=== PATIENT | female | born 1935 | race African-American/Black ===

== ENCOUNTER 2017-03-21 17:34 | Emergency (ER) | payer OTHER ==
--- NOTE | 2017-03-21 17:56 | PDOC ---
Rapid Medical Evaluation Time Seen by Provider: 03/21/17 17:53 Medical Evaluation: Allergies Allergy/AdvReac Type Severity Reaction Status Date / Time No Known Allergies Allergy Verified 12/13/14 23:40 03/21/17 17:53 Pt c/o:generalized weakness and lightheadness, vss and bs wnl at home, + diarrhea since yesterday x 2 . no blood, no fever, burning with urination Pt on brief exam: vss Pt ordered for: ua, ucx P to proceed to the ED: Discharge Disposition - Diagnosis Weakness - Referrals - Patient Instructions - Post Discharge Activity
[2017-03-21 17:59] VITALS: BP 153/79; PULSE 69; TEMP 98.8; BMI 32.5
[2017-03-21 19:13] LABS: URINE APPEARANCE CLEAR; URINE BILIRUBIN NEGATIVE (NEGATIVE); URINE BLOOD NEGATIVE (NEGATIVE); URINE COLOR LTYELLOW; URINE GLUCOSE (UA) NEGATIVE (NEGATIVE); URINE KETONE NEGATIVE (NEGATIVE); URINE LEUK ESTERASE NEGATIVE (NEGATIVE); URINE NITRITE NEGATIVE (NEGATIVE); URINE PROTEIN NEGATIVE (NEGATIVE); URINE UROBILINOGEN NEGATIVE mg/dL (0.2-1.0)
--- NOTE | 2017-03-21 20:31 | PDOC ---
History of Present Illness - General Chief Complaint: Weakness Stated Complaint: WEAKNESS Time Seen by Provider: 03/21/17 17:53 - History of Present Illness Initial Comments: 81 year old female with history of HTN, IDDM, and and HLD presenting with Dysuria, diarrhea, lightheadedness, and generalized weakness for the past three days. Her airport sales agent at bedside assists with the history and states that she had a UTi one month prior and was given abx by her PCP (Dr. Crandall) and experienced slight relief. She has been on Azo since but still has dysuria. She just finished another course of antibiotics yesterday and noticed NB diarrhea ( approximately 2x per day) over the last three days. Her appetite has been good and she denies fevers, chills, SOB, chest pain, blood from any orifice, or other sick symptoms. 03/21/17 20:25 Past History - Past Medical History Allergies/Adverse Reactions: Allergies Allergy/AdvReac Type Severity Reaction Status Date / Time No Known Allergies Allergy Verified 03/21/17 17:59 Home Medications: Ambulatory Orders Cephalexin [Keflex] 500 mg PO BID 10 Days #20 capsule 03/21/17 COPD: No Dementia: Yes Diabetes: Yes (niddm) HTN: Yes - Immunization History Immunization Up to Date: Yes - Suicide/Smoking/Psychosocial Hx Smoking History: Never smoked Have you smoked in the past 12 months: No Hx Alcohol Use: No Drug/Substance Use Hx: No Substance Use Type: None Review of Systems - Review of Systems Constitutional: No: Chills, Fever, Loss of Appetite HEENTM: No: Blurred Vision Respiratory: No: Cough, Shortness of Breath, Wheezing Cardiac (ROS): Yes: Lightheadedness. No: Chest Pain, Palpitations, Syncope, Chest Tightness ABD/GI: Yes: Diarrhea. No: Constipated, Nausea, Vomiting : Yes: Burning, Dysuria, Frequency. No: Discharge, Hematuria, Incontinence Musculoskeletal: No: Back Pain, Joint Pain Integumentary: No: Bruising, Flushing, Lesions, Lumps Neurological: Yes: Weakness. No: Headache *Physical Exam - Vital Signs Last Vital Signs Temp Pulse Resp BP Pulse Ox 98.8 F 69 16 153/79 100 03/21/17 17:56 03/21/17 17:56 03/21/17 17:56 03/21/17 17:56 03/21/17 17:56 - Physical Exam General Appearance: Yes: Nourished, Appropriately Dressed. No: Apparent Distress HEENT: positive: EOMI, LEMUEL, Normal Voice. negative: Normal ENT Inspection ( Hard of hearing bilaterally) Neck: positive: Trachea midline, Normal Thyroid, Supple. negative: Tender, Rigid Respiratory/Chest: positive: Lungs Clear, Normal Breath Sounds. negative: Chest Tender, Respiratory Distress, Accessory Muscle Use Cardiovascular: positive: Regular Rhythm, Regular Rate Gastrointestinal/Abdominal: positive: Normal Bowel Sounds, Flat, Soft. negative : Tender Musculoskeletal: positive: Normal Inspection. negative: CVA Tenderness Extremity: positive: Normal Capillary Refill, Normal Inspection. negative: Tender Integumentary: positive: Normal Color, Dry, Warm Neurologic: positive: Fully Oriented, Alert, Normal Mood/Affect, Normal Response ED Treatment Course - ADDITIONAL ORDERS Additional order review: Laboratory Results 03/21/17 18:10 Urine Color Ltyellow Urine Appearance Clear Urine pH 5.0 Ur Specific [place] 1.011 Urine Protein Negative Urine Glucose (UA) Negative Urine Ketones Negative Urine Blood Negative Urine Nitrite Negative Urine Bilirubin Negative Urine Urobilinogen Negative Ur Leukocyte Esterase Negative Medical Decision Making - Medical Decision Making 81 year old female with diabetes and HTN presenting with dysuria and a few episodes of diarrhea over the last few days. Denies fevers, chills, nausea, or vomiting. The patient is well appearing here and has been on pyridium. UA negative but she has been on abx. Will discharge with Motrin and Keflex. Will have follow up with Dr. Crandall tomorrow to coordinate abx choice. 03/21/17 20:51 *DC/Admit/Observation/Transfer Diagnosis at time of Disposition: Weakness UTI (urinary tract infection) Qualifiers: Urinary tract infection type: acute cystitis Hematuria presence: without hematuria Qualified Code(s): N30.00 - Acute cystitis without hematuria - Discharge Dispostion Disposition: HOME Condition at time of disposition: Stable Admit: No - Prescriptions Prescriptions: Cephalexin [Keflex] 500 mg PO BID 10 Days #20 capsule - Referrals Referrals: Denys Crandall MD [Staff Physician] - - Patient Instructions Printed Discharge Instructions: DI for Urinary Tract Infection (UTI) Additional Instructions: You might have an infection in your urine. Please take your antibiotics as prescribed and use Motrin 400 MG twice a day as needed. Please follow up with Dr. Crandall tomorrow to see if the antibiotics are appropriate in respect to what she has given you before. Your flu swab was negative and your urine culture is pending. We will call you if it grows anything. Please return if your symptoms do not improve in the next few days or if you get acutely worse with new fevers , chills, nausea vomiting, or worsening diarrhea. - Post Discharge Activity
--- NOTE | 2017-03-21 20:44 | PDOC ---
Attending Attestation - Resident Resident Name: Mckinley Pritchett - ED Attending Attestation I have performed the following: I have examined & evaluated the patient, The case was reviewed & discussed with the resident, I agree w/resident's findings & plan, Exceptions are as noted - Physicial Exam PE: 03/21/17 20:52 *Physical Exam General Appearance: Yes: Appropriately Dressed. No: Apparent Distress, Intoxicated HEENT: positive: EOMI, LEMUEL, Normal ENT Inspection, Normal Voice, TMs Normal, Pharynx Normal. negative: Pale Conjunctivae, Photophobia, Scleral Icterus (R), Scleral Icterus (L) Neck: positive: Trachea midline, Normal Thyroid, Supple. negative: Tender, Rigid, Carotid bruit, Stridor, Lymphadenopathy (R), Lymphadenopathy (L), Thyromegaly Respiratory/Chest: positive: Lungs Clear, Normal Breath Sounds. negative: Chest Tender, Respiratory Distress, Accessory Muscle Use, Labored Respiration, RES, Crackles, Rales, Rhonchi, Stridor, Wheezing, Dullness Cardiovascular: positive: Regular Rhythm, Regular Rate, S1, S2. negative: Edema , JVD, Murmur, Bradycardia, Tachycardia Vascular Pulses: Dorsalis-Pedis (R): 2+, Doralis-Pedis (L): 2+ Gastrointestinal/Abdominal: positive: Normal Bowel Sounds, Flat, Soft. negative : Tender, Organomegaly, Pulsatile Mass, Increased Bowel Sounds, Decreased BS, Distended, Guarding, Rebound, Hernia, Hepatomegaly, Spleenomegaly Lymphatic: negative: Adenopathy, Tenderness Musculoskeletal: positive: Normal Inspection. negative: CVA Tenderness, Decreased Range of Motion Extremity: positive: Normal Capillary Refill, Normal Inspection, Normal Range of Motion, Pelvis Stable. negative: Tender, Pedal Edema, Swelling, Erythema Integumentary: positive: Normal Color, Dry, Warm. negative: Cyanotic, Erythema , Jaundice, Rash Neurologic: positive: gamma operator II-XII NML intact, Fully Oriented, Alert, Normal Mood/ Affect, Motor Strength 5/5. negative: EOM Palsy, Facial Droop, Sensory Deficit - Medical Decision Making 03/21/17 20:50 Pt treated and released. <Daniel Delacruz - Last Filed: 03/21/17 20:52> - HPI HPI: 03/21/17 21:18 The patient is a 81 year old female with a significant past medical history of HTN, IDDM, and and HLD presenting to the emergency depatment with new onset diarrhea, lightheadedness for 3 days with persistent dysuria and generalized weakness despite a course of Abx for UTI the patient had about a month ago. The patient presents with her assistant health educator at bedside who states the patient experienced slight temporary relief after the course of Abx. The patient states she has been on "Azo" since but still complains of dysuria. The patient reports just completing another course of antibiotics yesterday, prescribed by Dr. Denys Crandall. As per the assistant health educator, she noticed non-bloody, diarrhea (approximately 2x per day) over the last three days. The patient denies chest pain, shortness of breath, headache and dizziness. The patient denies fever, chills, nausea, vomit, and constipation. The patient denies frequency, urgency and hematuria. - Medical Decision Making 03/21/17 21:24 Documentation prepared by Alice Barahona, acting as medical fee clerk for Daniel Delacruz DO. <Alice Barahona - Last Filed: 03/21/17 21:24>
== END 2017-03-21 21:22 | disposition home or self-care (01) ==
LOC: JER 17:34
DX: N30.00 Acute cystitis without hematuria (principal); E11.9 Type 2 diabetes mellitus without complications; I10 Essential (primary) hypertension
CPT/HCPCS: 81003; 87086; 87804; 99281-25

== ENCOUNTER 2020-06-15 12:16 | Inpatient (IN) | payer OTHER ==
[2020-06-15 14:45] LABS: BASO % 0.4 % (0-2.0); HEMATOCRIT 33.4 % (32.4-45.2); HEMOGLOBIN 10.8 GM/dL (10.7-15.3); LYMPH % 15.4 % (8-40); MCH 29.6 pg (25.7-33.7); MCHC 32.3 g/dl (32.0-36.0); MEAN CELL VOLUME 91.5 fl (80-96); MEAN PLT VOLUME 8.6 fl (7.5-11.1); MONO % 3.4 % (3.8-10.2); NEUT % 80.8 % (42.8-82.8); PLATELET COUNT 676 K/MM3 (134-434); RBC 3.65 M/mm3 (3.60-5.2)
[2020-06-15 15:06] LABS: CHLORIDE 108 mmol/L (98-107); SODIUM 147 mmol/L (136-145)
[2020-06-15 15:09] LABS: CALCIUM 9.5 mg/dL (8.5-10.1); GLUCOSE,RANDOM 300 mg/dL (74-106)
[2020-06-15 15:10] LABS: ALBUMIN 2.8 g/dl (3.4-5.0); ANION GAP 23 MMOL/L (8-16); BLOOD UREA NITROGEN 30.6 mg/dL (7-18); CO2 15 mmol/L (21-32)
[2020-06-15 15:13] LABS: CREATININE 1.1 mg/dL (0.55-1.3); SGOT/AST 13 U/L (15-37); SGPT/ALT 14 U/L (13-61)
[2020-06-15 15:14] LABS: BILIRUBIN,TOTAL 0.6 mg/dL (0.2-1); TOT PROT 7.2 g/dl (6.4-8.2)
[2020-06-15 15:16] LABS: ALK PHOS 179 U/L (45-117)
[2020-06-15] MEDS ORDERED: LACTATED RINGERS SOLUTION 1,000 ML/1,000 ML INFUS.BAG IV STA (15:19)
[2020-06-15 15:42] LABS: EPI CELLS >36 /uL (0-25.1); HYALINE CASTS 7 /uL (0-3.1); URINE APPEARANCE CLOUDY; URINE BACTERIA >9,000 /uL (0-1359); URINE BILIRUBIN NEGATIVE (NEGATIVE); URINE COLOR YELLOW; URINE GLUCOSE (UA) TRACE (NEGATIVE); URINE KETONE 4+ (NEGATIVE); URINE LEUK ESTERASE 3+ (NEGATIVE); URINE NITRITE NEGATIVE (NEGATIVE); URINE PROTEIN 1+ (NEGATIVE); URINE WBC 1064 /uL (0-25.8)
[2020-06-15 16:14] LABS: ERYTHROCYTE SEDIMENTATION RATE 66 mm/hr (0-30)
[2020-06-15] MEDS ORDERED: VANCOMYCIN 1 GM in D5W (PRE-DOCKED) 1,000 MG/250 ML IVPB ONE (16:22)
[2020-06-15] MEDS ORDERED: PIPERACILLIN/TAZOB 4.5 GM 4.5 GM in DEXTROSE 5%-WATER 100 ML IVPB ONE (16:23)
[2020-06-15] MEDS ORDERED: LACTATED RINGERS SOLUTION 1000 ML INFUS.BAG IV ONE (16:35)
[2020-06-15] MEDS ORDERED: MAGNESIUM SULF 50% (8.12 MEQ/2 ML-1 GM VIAL) IVPB ONE (16:39)
[2020-06-15 16:53] LABS: MAGNESIUM 2.2 mg/dL (1.8-2.4)
[2020-06-15] MEDS ORDERED: VANCOMYCIN 1 GRAM (PRE-DOCKED) 1,000 MG/250 ML BAG IVPB ONE (17:25)
[2020-06-15] MEDS ORDERED: HEPARIN NA (PORCINE) 5,000 UNITS/ML 1ML VIAL ONE (17:25)
[2020-06-15] MEDS ORDERED: MAGNESIUM SULF 50% (8.12 MEQ/2 ML-1 GM VIAL) ONE (17:26)
[2020-06-15] MEDS: SODIUM CHLORIDE 0.45%/POT 20 MEQ/1,000 ML INFUS.BAG IV SCH ×2 (18:17→20:12)
[2020-06-15] MEDS: HEPARIN NA (PORCINE) 5,000 UNITS/ML 1ML VIAL SQ SCH ×2 (18:22→21:04)
[2020-06-15 18:45] LABS: URINE RBC 28 /uL (0-23.9)
[2020-06-15] MEDS ORDERED: PIPERACILLIN/TAZOBACTAM 3.375 GM VIAL IVPB ONE (21:02)
[2020-06-15] MEDS ORDERED: DEXTROSE 5%-WATER - 50 ML IVPB ONE (21:02)
[2020-06-15] MEDS: PIPERACILLIN/TAZOB 3.375 GM 3.375 GM in DEXTROSE 5%-WATER - 50 ML IVPB SCH (21:04)
[2020-06-15] MEDS: INSULIN SLIDING SCALE (NOVOLOG) 1 VIAL SQ SCH ×2 (21:04→21:30)
[2020-06-15] MEDS: ATORVASTATIN CA 20 MG TABLET (FP) PO SCH (21:04)
[2020-06-16] MEDS ORDERED: PIPERACILLIN/TAZOBACTAM 3.375 GM VIAL IVPB ONE ×3 (03:02→21:09)
[2020-06-16] MEDS ORDERED: DEXTROSE 5%-WATER - 50 ML IVPB ONE ×3 (03:02→21:09)
[2020-06-16] MEDS: PIPERACILLIN/TAZOB 3.375 GM 3.375 GM in DEXTROSE 5%-WATER - 50 ML IVPB SCH ×3 (03:06→21:11)
[2020-06-16] MEDS: HEPARIN NA (PORCINE) 5,000 UNITS/ML 1ML VIAL SQ SCH ×3 (05:40→21:11)
[2020-06-16] MEDS: INSULIN SLIDING SCALE (NOVOLOG) 1 VIAL SQ SCH ×4 (06:01→21:55)
[2020-06-16] MEDS: ASPIRIN 81 MG CHEWABLE TABLETS PO SCH (09:02)
[2020-06-16] MEDS: amLODIPine BESYLATE 10 MG TABLET (FP) PO SCH (09:02)
[2020-06-16] MEDS: LISINOPRIL 10 MG TABLET PO SCH (09:02)
[2020-06-16] MEDS: DONEPEZIL HCL 5 MG TABLET (FP) PO SCH (09:02)
[2020-06-16] MEDS ORDERED: levETIRAcetam 500 MG/5 ML INJECTION VIAL IVPB ONE (09:21)
[2020-06-16 09:53] LABS: ALLENS TEST POSITIVE; ARTERIAL BLD GAS O2 SATURATION 99.1 mmHg (95-98); ARTERIAL BLOOD GAS BASE EXCESS 0.3 mmol/L (-2-2); ARTERIAL BLOOD GAS PO2 163.6 mmHg (80-100); ARTERIAL BLOOD GAS pH 7.428 (7.350-7.450)
[2020-06-16] MEDS: SODIUM CHLORIDE 0.45%/POT 20 MEQ/1,000 ML INFUS.BAG IV SCH ×2 (10:47→19:00)
[2020-06-16 11:03] LABS: BASO % 0.5 % (0-2.0); HEMATOCRIT 29.4 % (32.4-45.2); HEMOGLOBIN 9.8 GM/dL (10.7-15.3); LYMPH % 16.5 % (8-40); MCH 29.9 pg (25.7-33.7); MCHC 33.4 g/dl (32.0-36.0); MEAN CELL VOLUME 89.3 fl (80-96); MONO % 5.5 % (3.8-10.2); NEUT % 77.5 % (42.8-82.8); RDW 15.7 % (11.6-15.6); WHITE BLOOD COUNT 11.5 K/mm3 (4.0-10.0)
[2020-06-16 11:04] LABS: MEAN PLT VOLUME 8.5 fl (7.5-11.1); PLATELET COUNT 460 K/MM3 (134-434)
[2020-06-16 11:32] LABS: ALBUMIN 2.4 g/dl (3.4-5.0); CALCIUM 8.8 mg/dL (8.5-10.1); MAGNESIUM 2.1 mg/dL (1.8-2.4)
[2020-06-16 11:36] LABS: CREATININE 1.2 mg/dL (0.55-1.3); PHOSPHOROUS 2.1 mg/dL (2.5-4.9)
[2020-06-16 11:37] LABS: BILIRUBIN,TOTAL 0.4 mg/dL (0.2-1)
[2020-06-16] MEDS ORDERED: VANCOMYCIN 1 GRAM (PRE-DOCKED) 1,000 MG/250 ML BAG IVPB ONE ×3 (12:02→16:00)
[2020-06-16 13:29] LABS: PLATELET ESTIMATE NORMAL
[2020-06-16] MEDS ORDERED: PT OWN MED DRAWER 7, Y5N ONE (14:20)
[2020-06-16 14:28] LABS: LACTIC ACID 3.1 mmol/L (0.4-2.0)
[2020-06-16] MEDS: SODIUM PHOSPHATE - 20 MM in DEXTROSE 5%-WATER - 500 ML IVPB ONE ×2 (16:25→16:40)
[2020-06-16] MEDS: KCL 10 MEQ IVPB 10 MEQ/100 ML INFUS.BAG IVPB SCH ×3 (16:40→23:50)
[2020-06-16] MEDS ORDERED: PIPERACILLIN/TAZOB 3.375 GM 3.375 GM in DEXTROSE 5%-WATER - 50 ML IVPB SCH (18:00)
[2020-06-16] MEDS: ATORVASTATIN CA 20 MG TABLET (FP) PO SCH (21:17)
[2020-06-16] MEDS: levETIRAcetam 500 MG/5 ML INJECTION VIAL IVPB SCH (21:55)
[2020-06-17] MEDS ORDERED: DEXTROSE 5%-WATER - 50 ML IVPB ONE ×3 (02:53→18:05)
[2020-06-17] MEDS ORDERED: PIPERACILLIN/TAZOBACTAM 3.375 GM VIAL IVPB ONE ×3 (02:53→18:04)
[2020-06-17] MEDS: PIPERACILLIN/TAZOB 3.375 GM 3.375 GM in DEXTROSE 5%-WATER - 50 ML IVPB SCH ×3 (02:57→18:10)
[2020-06-17] MEDS: SODIUM CHLORIDE 0.45%/POT 20 MEQ/1,000 ML INFUS.BAG IV SCH ×2 (03:24→21:47)
[2020-06-17] MEDS: HEPARIN NA (PORCINE) 5,000 UNITS/ML 1ML VIAL SQ SCH ×3 (06:27→21:47)
[2020-06-17] MEDS: INSULIN SLIDING SCALE (NOVOLOG) 1 VIAL SQ SCH ×4 (06:27→21:58)
[2020-06-17] MEDS: ASPIRIN 81 MG CHEWABLE TABLETS PO SCH (09:35)
[2020-06-17] MEDS: DONEPEZIL HCL 5 MG TABLET (FP) PO SCH (09:35)
[2020-06-17] MEDS: amLODIPine BESYLATE 10 MG TABLET (FP) PO SCH (09:36)
[2020-06-17] MEDS: LISINOPRIL 10 MG TABLET PO SCH (09:36)
[2020-06-17 10:31] LABS: BASO % 0.5 % (0-2.0); EOS % 0.1 % (0-4.5); HEMATOCRIT 31.6 % (32.4-45.2); HEMOGLOBIN 10.5 GM/dL (10.7-15.3); LYMPH % 24.3 % (8-40); MCH 29.6 pg (25.7-33.7); MCHC 33.3 g/dl (32.0-36.0); MEAN PLT VOLUME 7.9 fl (7.5-11.1); MONO % 4.6 % (3.8-10.2); NEUT % 70.5 % (42.8-82.8); RBC 3.55 M/mm3 (3.60-5.2); RDW 15.7 % (11.6-15.6); WHITE BLOOD COUNT 9.1 K/mm3 (4.0-10.0)
[2020-06-17 10:32] LABS: PLATELET COUNT 506 K/MM3 (134-434)
[2020-06-17 11:00] LABS: CALCIUM 8.3 mg/dL (8.5-10.1)
[2020-06-17 11:01] LABS: ALBUMIN 2.4 g/dl (3.4-5.0); BLOOD UREA NITROGEN 17.5 mg/dL (7-18); MAGNESIUM 1.9 mg/dL (1.8-2.4)
[2020-06-17 11:04] LABS: CREATININE 0.9 mg/dL (0.55-1.3); PHOSPHOROUS 3.2 mg/dL (2.5-4.9)
[2020-06-17 11:05] LABS: BILIRUBIN,TOTAL 0.4 mg/dL (0.2-1); TOT PROT 6.2 g/dl (6.4-8.2)
[2020-06-17] MEDS: levETIRAcetam 500 MG/5 ML INJECTION VIAL IVPB SCH ×2 (12:46→21:47)
[2020-06-17] MEDS: COLLAGENASE CLOSTRIDIUM HIST. 30 GRAMS TUBE TP SCH (17:55)
[2020-06-17] MEDS: ATORVASTATIN CA 20 MG TABLET (FP) PO SCH (21:43)
[2020-06-18] MEDS ORDERED: PIPERACILLIN/TAZOBACTAM 3.375 GM VIAL IVPB ONE ×2 (02:27→08:57)
[2020-06-18] MEDS ORDERED: DEXTROSE 5%-WATER - 50 ML IVPB ONE ×2 (02:28→08:58)
[2020-06-18] MEDS: PIPERACILLIN/TAZOB 3.375 GM 3.375 GM in DEXTROSE 5%-WATER - 50 ML IVPB SCH ×3 (02:50→18:50)
[2020-06-18] MEDS: INSULIN SLIDING SCALE (NOVOLOG) 1 VIAL SQ SCH ×4 (06:12→22:15)
[2020-06-18] MEDS: HEPARIN NA (PORCINE) 5,000 UNITS/ML 1ML VIAL SQ SCH ×3 (06:13→22:08)
[2020-06-18 06:43] LABS: BASO % 0.5 % (0-2.0); EOS % 0.2 % (0-4.5); HEMATOCRIT 28.5 % (32.4-45.2); HEMOGLOBIN 9.7 GM/dL (10.7-15.3); LYMPH % 25.2 % (8-40); MCH 30.2 pg (25.7-33.7); MEAN CELL VOLUME 88.7 fl (80-96); MEAN PLT VOLUME 8.3 fl (7.5-11.1); MONO % 4.7 % (3.8-10.2); NEUT % 69.4 % (42.8-82.8); PLATELET COUNT 498 K/MM3 (134-434); RBC 3.21 M/mm3 (3.60-5.2); WHITE BLOOD COUNT 6.9 K/mm3 (4.0-10.0)
[2020-06-18 06:53] LABS: CALCIUM 7.9 mg/dL (8.5-10.1)
[2020-06-18 06:56] LABS: CREATININE 0.7 mg/dL (0.55-1.3)
[2020-06-18 06:58] LABS: BILIRUBIN,TOTAL 0.4 mg/dL (0.2-1); TOT PROT 5.4 g/dl (6.4-8.2)
[2020-06-18] MEDS: amLODIPine BESYLATE 10 MG TABLET (FP) PO SCH (09:27)
[2020-06-18] MEDS: DONEPEZIL HCL 5 MG TABLET (FP) PO SCH (09:27)
[2020-06-18] MEDS: ASPIRIN 81 MG CHEWABLE TABLETS PO SCH (09:27)
[2020-06-18] MEDS: COLLAGENASE CLOSTRIDIUM HIST. 30 GRAMS TUBE TP SCH (09:27)
[2020-06-18] MEDS: levETIRAcetam 500 MG/5 ML INJECTION VIAL IVPB SCH ×2 (09:27→22:10)
[2020-06-18] MEDS: LISINOPRIL 10 MG TABLET PO SCH (09:27)
[2020-06-18] MEDS ORDERED: VANCOMYCIN 1 GRAM (PRE-DOCKED) 1,000 MG/250 ML BAG IVPB ONE (09:30)
[2020-06-18] MEDS ORDERED: METOPROLOL TARTRATE 5 MG/5 ML VIAL IVPB PRN (13:20)
[2020-06-18] MEDS: SODIUM CHLORIDE 0.45%/POT 20 MEQ/1,000 ML INFUS.BAG IV SCH (17:40)
[2020-06-18] MEDS: ATORVASTATIN CA 20 MG TABLET (FP) PO SCH (22:10)
[2020-06-19] MEDS: PIPERACILLIN/TAZOB 3.375 GM 3.375 GM in DEXTROSE 5%-WATER - 50 ML IVPB SCH ×5 (02:20→18:15)
[2020-06-19] MEDS: HEPARIN NA (PORCINE) 5,000 UNITS/ML 1ML VIAL SQ SCH ×3 (05:43→22:12)
[2020-06-19] MEDS: INSULIN SLIDING SCALE (NOVOLOG) 1 VIAL SQ SCH ×4 (06:16→22:13)
[2020-06-19 08:47] VITALS: BMI 24.3
[2020-06-19] MEDS: LISINOPRIL 10 MG TABLET PO SCH (09:40)
[2020-06-19] MEDS: ASPIRIN 81 MG CHEWABLE TABLETS PO SCH (09:40)
[2020-06-19] MEDS: DONEPEZIL HCL 5 MG TABLET (FP) PO SCH (09:40)
[2020-06-19] MEDS: amLODIPine BESYLATE 10 MG TABLET (FP) PO SCH (09:40)
[2020-06-19] MEDS: levETIRAcetam 500 MG/5 ML INJECTION VIAL IVPB SCH ×3 (09:40→22:20)
[2020-06-19] MEDS ORDERED: PIPERACILLIN/TAZOBACTAM 3.375 GM VIAL IVPB ONE ×2 (12:08→17:11)
[2020-06-19] MEDS ORDERED: DEXTROSE 5%-WATER - 50 ML IVPB ONE ×2 (12:08→17:11)
[2020-06-19] MEDS: COLLAGENASE CLOSTRIDIUM HIST. 30 GRAMS TUBE TP SCH (12:13)
[2020-06-19] MEDS: D5-NS + 20 MEQ KCL - 20 MEQ/1,000 ML INFUS.BAG IV SCH (13:38)
[2020-06-19] MEDS: SODIUM CHLORIDE 0.45%/POT 20 MEQ/1,000 ML INFUS.BAG IV SCH (18:02)
[2020-06-19] MEDS: ATORVASTATIN CA 20 MG TABLET (FP) PO SCH (22:25)
[2020-06-20] MEDS: HEPARIN NA (PORCINE) 5,000 UNITS/ML 1ML VIAL SQ SCH ×3 (05:25→21:25)
[2020-06-20] MEDS: INSULIN SLIDING SCALE (NOVOLOG) 1 VIAL SQ SCH ×4 (06:55→22:38)
[2020-06-20 07:17] LABS: BASO % 0.5 % (0-2.0); HEMATOCRIT 28.6 % (32.4-45.2); HEMOGLOBIN 9.7 GM/dL (10.7-15.3); LYMPH % 25.5 % (8-40); MCH 30.1 pg (25.7-33.7); MCHC 33.8 g/dl (32.0-36.0); MEAN PLT VOLUME 8.9 fl (7.5-11.1); MONO % 6.7 % (3.8-10.2); NEUT % 67.3 % (42.8-82.8); PLATELET COUNT 433 K/MM3 (134-434); RBC 3.22 M/mm3 (3.60-5.2); RDW 16.3 % (11.6-15.6); WHITE BLOOD COUNT 7.1 K/mm3 (4.0-10.0)
[2020-06-20 07:35] LABS: CALCIUM 8.4 mg/dL (8.5-10.1)
[2020-06-20 07:36] LABS: BLOOD UREA NITROGEN 11.9 mg/dL (7-18)
[2020-06-20 07:39] LABS: CREATININE 0.7 mg/dL (0.55-1.3)
[2020-06-20 08:54] LABS: ANISOCYTOSIS 0; MACROCYTOSIS 0; PLATELET ESTIMATE NORMAL
[2020-06-20] MEDS: LISINOPRIL 10 MG TABLET PO SCH (11:42)
[2020-06-20] MEDS: amLODIPine BESYLATE 10 MG TABLET (FP) PO SCH (11:42)
[2020-06-20] MEDS: DONEPEZIL HCL 5 MG TABLET (FP) PO SCH (11:43)
[2020-06-20] MEDS ORDERED: DEXTROSE 5%-WATER - 50 ML IVPB ONE ×2 (14:12→18:34)
[2020-06-20] MEDS ORDERED: PIPERACILLIN/TAZOBACTAM 3.375 GM VIAL IVPB ONE ×2 (14:12→18:34)
[2020-06-20] MEDS: PIPERACILLIN/TAZOB 3.375 GM 3.375 GM in DEXTROSE 5%-WATER - 50 ML IVPB SCH ×2 (14:15→18:37)
[2020-06-20] MEDS: levETIRAcetam 500 MG/5 ML INJECTION VIAL IVPB SCH ×2 (14:56→21:24)
[2020-06-20] MEDS ORDERED: PT OWN MED DRAWER 7, Y5N ONE (15:39)
[2020-06-20] MEDS: D5-NS + 20 MEQ KCL - 20 MEQ/1,000 ML INFUS.BAG IV SCH (16:24)
[2020-06-20] MEDS: COLLAGENASE CLOSTRIDIUM HIST. 30 GRAMS TUBE TP SCH (16:24)
[2020-06-20] MEDS: ATORVASTATIN CA 20 MG TABLET (FP) PO SCH (21:25)
[2020-06-21] MEDS ORDERED: DEXTROSE 5%-WATER - 50 ML IVPB ONE ×3 (00:42→17:21)
[2020-06-21] MEDS ORDERED: PIPERACILLIN/TAZOBACTAM 3.375 GM VIAL IVPB ONE ×3 (00:42→17:21)
[2020-06-21] MEDS: PIPERACILLIN/TAZOB 3.375 GM 3.375 GM in DEXTROSE 5%-WATER - 50 ML IVPB SCH ×3 (01:02→17:25)
[2020-06-21] MEDS: HEPARIN NA (PORCINE) 5,000 UNITS/ML 1ML VIAL SQ SCH ×3 (05:28→21:54)
[2020-06-21] MEDS: INSULIN SLIDING SCALE (NOVOLOG) 1 VIAL SQ SCH ×4 (06:06→21:59)
[2020-06-21] MEDS: amLODIPine BESYLATE 10 MG TABLET (FP) PO SCH (09:29)
[2020-06-21] MEDS: DONEPEZIL HCL 5 MG TABLET (FP) PO SCH (09:29)
[2020-06-21] MEDS: LISINOPRIL 10 MG TABLET PO SCH (09:29)
[2020-06-21] MEDS: COLLAGENASE CLOSTRIDIUM HIST. 30 GRAMS TUBE TP SCH (09:30)
[2020-06-21] MEDS: levETIRAcetam 500 MG/5 ML INJECTION VIAL IVPB SCH ×2 (10:28→21:36)
[2020-06-21] MEDS: D5-NS + 20 MEQ KCL - 20 MEQ/1,000 ML INFUS.BAG IV SCH (14:14)
[2020-06-21] MEDS ORDERED: D5-1/2NS+20 MEQ KCL - 20 MEQ/1,000 ML INFUS.BAG IV SCH (16:45)
[2020-06-21 16:55] LABS: INR 1.26 (0.83-1.09); PROTHROMBIN TIME (PATIENT) 15.1 SEC (9.7-13.0)
[2020-06-21] MEDS: ATORVASTATIN CA 20 MG TABLET (FP) PO SCH (21:39)
[2020-06-22] MEDS ORDERED: PIPERACILLIN/TAZOBACTAM 3.375 GM VIAL IVPB ONE ×2 (00:40→12:03)
[2020-06-22] MEDS ORDERED: DEXTROSE 5%-WATER - 50 ML IVPB ONE ×2 (00:41→12:03)
[2020-06-22] MEDS: PIPERACILLIN/TAZOB 3.375 GM 3.375 GM in DEXTROSE 5%-WATER - 50 ML IVPB SCH ×2 (01:01→12:09)
[2020-06-22] MEDS: HEPARIN NA (PORCINE) 5,000 UNITS/ML 1ML VIAL SQ SCH ×2 (05:00→16:51)
[2020-06-22] MEDS: INSULIN SLIDING SCALE (NOVOLOG) 1 VIAL SQ SCH ×4 (06:07→21:43)
[2020-06-22 07:43] LABS: CALCIUM 8.2 mg/dL (8.5-10.1)
[2020-06-22 07:44] LABS: ALBUMIN 2.1 g/dl (3.4-5.0); BLOOD UREA NITROGEN 7.6 mg/dL (7-18)
[2020-06-22 07:47] LABS: CREATININE 0.8 mg/dL (0.55-1.3)
[2020-06-22 07:48] LABS: BILIRUBIN,TOTAL 0.5 mg/dL (0.2-1); TOT PROT 5.6 g/dl (6.4-8.2)
[2020-06-22] MEDS ORDERED: GLUCAGON 1 MG KIT IVPUSH ONE ×2 (11:00)
[2020-06-22] MEDS ORDERED: INSULIN (NOVOLOG) ASPART 100 UNITS/ML 10ML VIAL ONE (12:04)
[2020-06-22] MEDS: levETIRAcetam 500 MG/5 ML INJECTION VIAL IVPB SCH ×2 (12:09→21:01)
[2020-06-22] MEDS: COLLAGENASE CLOSTRIDIUM HIST. 30 GRAMS TUBE TP SCH (12:10)
[2020-06-22] MEDS: DONEPEZIL HCL 5 MG TABLET (FP) PO SCH (12:10)
[2020-06-22] MEDS: LISINOPRIL 10 MG TABLET PO SCH (12:10)
[2020-06-22] MEDS: amLODIPine BESYLATE 10 MG TABLET (FP) PO SCH (12:10)
[2020-06-22] MEDS: POTASSIUM CHLORIDE 20 MEQ in DEXTROSE 5%-WATER - 1,000 ML IV SCH (12:36)
[2020-06-22] MEDS: ATORVASTATIN CA 20 MG TABLET (FP) PO SCH (21:00)
[2020-06-22] MEDS: CEFUROXIME AXETIL 250 MG TABLET PO SCH (21:01)
[2020-06-23] MEDS: POTASSIUM CHLORIDE 20 MEQ in DEXTROSE 5%-WATER - 1,000 ML IV SCH ×2 (02:50→09:31)
[2020-06-23] MEDS: INSULIN SLIDING SCALE (NOVOLOG) 1 VIAL SQ SCH ×4 (06:40→21:41)
[2020-06-23 07:18] LABS: HEMATOCRIT 29.3 % (32.4-45.2); HEMOGLOBIN 9.9 GM/dL (10.7-15.3); MCH 29.6 pg (25.7-33.7); MCHC 33.8 g/dl (32.0-36.0); MEAN CELL VOLUME 87.4 fl (80-96); MEAN PLT VOLUME 9.5 fl (7.5-11.1); PLATELET COUNT 376 K/MM3 (134-434); RBC 3.36 M/mm3 (3.60-5.2); RDW 16.7 % (11.6-15.6); WHITE BLOOD COUNT 8.2 K/mm3 (4.0-10.0)
[2020-06-23 07:55] LABS: BLOOD UREA NITROGEN 6.3 mg/dL (7-18); CALCIUM 8.3 mg/dL (8.5-10.1)
[2020-06-23 07:59] LABS: CREATININE 0.7 mg/dL (0.55-1.3)
[2020-06-23 08:00] LABS: BILIRUBIN,TOTAL 0.8 mg/dL (0.2-1); TOT PROT 5.4 g/dl (6.4-8.2)
[2020-06-23] MEDS: CEFUROXIME AXETIL 250 MG TABLET PO SCH ×2 (09:37→21:35)
[2020-06-23] MEDS: levETIRAcetam 500 MG/5 ML INJECTION VIAL IVPB SCH ×2 (09:37→21:34)
[2020-06-23] MEDS: LISINOPRIL 10 MG TABLET PO SCH (09:37)
[2020-06-23] MEDS: DONEPEZIL HCL 5 MG TABLET (FP) PO SCH (09:37)
[2020-06-23] MEDS: amLODIPine BESYLATE 10 MG TABLET (FP) PO SCH (09:37)
[2020-06-23] MEDS: ASPIRIN 81 MG CHEWABLE TABLETS PO SCH (09:37)
[2020-06-23] MEDS: COLLAGENASE CLOSTRIDIUM HIST. 30 GRAMS TUBE TP SCH (09:37)
[2020-06-23] MEDS ORDERED: POTASSIUM CHLORIDE 20 MEQ in DEXTROSE 5%-WATER - 1,000 ML IV SCH (16:42)
[2020-06-23] MEDS: KCL 10 MEQ IVPB 10 MEQ/100 ML INFUS.BAG IVPB SCH ×3 (17:06→20:06)
[2020-06-23] MEDS: ATORVASTATIN CA 20 MG TABLET (FP) PO SCH (21:35)
[2020-06-24] MEDS ORDERED: POTASSIUM CHLORIDE 20 MEQ in DEXTROSE 5%-WATER - 1,000 ML IV SCH (03:45)
[2020-06-24] MEDS: INSULIN SLIDING SCALE (NOVOLOG) 1 VIAL SQ SCH ×4 (06:33→22:10)
[2020-06-24 07:58] LABS: CALCIUM 7.9 mg/dL (8.5-10.1)
[2020-06-24 07:59] LABS: ALBUMIN 2.1 g/dl (3.4-5.0); BLOOD UREA NITROGEN 5.5 mg/dL (7-18); MAGNESIUM 1.3 mg/dL (1.8-2.4)
[2020-06-24 08:02] LABS: CREATININE 0.6 mg/dL (0.55-1.3)
[2020-06-24 08:03] LABS: BILIRUBIN,TOTAL 0.5 mg/dL (0.2-1); TOT PROT 5.4 g/dl (6.4-8.2)
[2020-06-24] MEDS ORDERED: PT OWN MED DRAWER 7, Y5N ONE (08:53)
[2020-06-24] MEDS: levETIRAcetam 500 MG/5 ML INJECTION VIAL IVPB SCH ×2 (11:00→22:03)
[2020-06-24] MEDS: COLLAGENASE CLOSTRIDIUM HIST. 30 GRAMS TUBE TP SCH (11:01)
[2020-06-24] MEDS: DONEPEZIL HCL 5 MG TABLET (FP) PO SCH (11:01)
[2020-06-24] MEDS: ASPIRIN 81 MG CHEWABLE TABLETS PO SCH (11:01)
[2020-06-24] MEDS: CEFUROXIME AXETIL 250 MG TABLET PO SCH (11:02)
[2020-06-24] MEDS: amLODIPine BESYLATE 10 MG TABLET (FP) PO SCH (11:11)
[2020-06-24] MEDS: LISINOPRIL 10 MG TABLET PO SCH (11:11)
[2020-06-24] MEDS ORDERED: MAGNESIUM 2GM/50ML STERILE WATER IVPB IVPB ONE (15:00)
[2020-06-24] MEDS ORDERED: POTASSIUM CHLORIDE ORAL LIQUID 20 MEQ/15 ML PO ONE (15:00)
[2020-06-24] MEDS ORDERED: INSULIN (NOVOLOG) ASPART 100 UNITS/ML 10ML VIAL ONE (21:25)
[2020-06-24] MEDS: ATORVASTATIN CA 20 MG TABLET (FP) PO SCH (22:05)
[2020-06-25] MEDS: INSULIN SLIDING SCALE (NOVOLOG) 1 VIAL SQ SCH ×4 (06:36→22:35)
[2020-06-25] MEDS: LISINOPRIL 10 MG TABLET PO SCH (11:09)
[2020-06-25] MEDS: DONEPEZIL HCL 5 MG TABLET (FP) PO SCH (11:09)
[2020-06-25] MEDS: levETIRAcetam 500 MG/5 ML INJECTION VIAL IVPB SCH ×2 (11:10→22:17)
[2020-06-25] MEDS: amLODIPine BESYLATE 10 MG TABLET (FP) PO SCH (11:10)
[2020-06-25] MEDS: ASPIRIN 81 MG CHEWABLE TABLETS PO SCH (11:10)
[2020-06-25] MEDS: AMINO ACIDS/PROTEIN HYDROLYS 30 ML LIQUID.PKT PO SCH (11:10)
[2020-06-25] MEDS: COLLAGENASE CLOSTRIDIUM HIST. 30 GRAMS TUBE TP SCH (11:10)
[2020-06-25] MEDS: ATORVASTATIN CA 20 MG TABLET (FP) PO SCH (22:17)
[2020-06-26] MEDS: INSULIN SLIDING SCALE (NOVOLOG) 1 VIAL SQ SCH ×4 (06:16→21:35)
[2020-06-26] MEDS: ASPIRIN 81 MG CHEWABLE TABLETS PO SCH (11:27)
[2020-06-26] MEDS: levETIRAcetam 500 MG/5 ML INJECTION VIAL IVPB SCH ×2 (11:27→21:14)
[2020-06-26] MEDS: DONEPEZIL HCL 5 MG TABLET (FP) PO SCH (11:27)
[2020-06-26] MEDS: LISINOPRIL 10 MG TABLET PO SCH (11:27)
[2020-06-26] MEDS: COLLAGENASE CLOSTRIDIUM HIST. 30 GRAMS TUBE TP SCH (11:27)
[2020-06-26] MEDS: AMINO ACIDS/PROTEIN HYDROLYS 30 ML LIQUID.PKT PO SCH (11:27)
[2020-06-26] MEDS: amLODIPine BESYLATE 10 MG TABLET (FP) PO SCH (11:27)
[2020-06-26] MEDS ORDERED: ACETAMINOPHEN 1000 MG/100 ML BAG IVPB PRN (12:09)
[2020-06-26 12:40] LABS: HEMATOCRIT 27.2 % (32.4-45.2); MCH 29.6 pg (25.7-33.7); MCHC 33.1 g/dl (32.0-36.0); MEAN CELL VOLUME 89.4 fl (80-96); PLATELET COUNT 288 K/MM3 (134-434); RBC 3.04 M/mm3 (3.60-5.2); RDW 17.1 % (11.6-15.6); WHITE BLOOD COUNT 9.4 K/mm3 (4.0-10.0)
[2020-06-26 13:04] LABS: ALBUMIN 1.8 g/dl (3.4-5.0); BILIRUBIN,TOTAL 0.3 mg/dL (0.2-1); BLOOD UREA NITROGEN 19.9 mg/dL (7-18); CREATININE 0.6 mg/dL (0.55-1.3); TOT PROT 4.8 g/dl (6.4-8.2)
[2020-06-26 15:18] LABS: EPI CELLS >36 /uL (0-25.1); HYALINE CASTS 2 /uL (0-3.1); PH,URINE 5.5 (5.0-8.0); URINE APPEARANCE CLEAR; URINE BACTERIA 3 /uL (0-1359); URINE BILIRUBIN NEGATIVE (NEGATIVE); URINE COLOR YELLOW; URINE GLUCOSE (UA) 3+ (NEGATIVE); URINE KETONE NEGATIVE (NEGATIVE); URINE LEUK ESTERASE 1+ (NEGATIVE); URINE NITRITE NEGATIVE (NEGATIVE); URINE PROTEIN TRACE (NEGATIVE); URINE WBC 155 /uL (0-25.8)
[2020-06-26 16:01] LABS: URINE RBC 34 /uL (0-23.9)
[2020-06-26 16:02] LABS: YEAST POSITIVE (NEGATIVE)
[2020-06-26] MEDS: ATORVASTATIN CA 20 MG TABLET (FP) PO SCH (21:14)
[2020-06-26] MEDS ORDERED: INSULIN (NOVOLOG) ASPART 100 UNITS/ML 10ML VIAL ONE (21:30)
[2020-06-27] MEDS: INSULIN SLIDING SCALE (NOVOLOG) 1 VIAL SQ SCH ×3 (06:55→16:34)
[2020-06-27] MEDS: levETIRAcetam 500 MG/5 ML INJECTION VIAL IVPB SCH (10:21)
[2020-06-27] MEDS: LISINOPRIL 10 MG TABLET PO SCH (10:21)
[2020-06-27] MEDS: amLODIPine BESYLATE 10 MG TABLET (FP) PO SCH (10:21)
[2020-06-27] MEDS: DONEPEZIL HCL 5 MG TABLET (FP) PO SCH (10:21)
[2020-06-27] MEDS: AMINO ACIDS/PROTEIN HYDROLYS 30 ML LIQUID.PKT PO SCH (10:21)
[2020-06-27] MEDS: ASPIRIN 81 MG CHEWABLE TABLETS PO SCH (10:21)
[2020-06-27] MEDS: COLLAGENASE CLOSTRIDIUM HIST. 30 GRAMS TUBE TP SCH (10:22)
[2020-06-27 19:06] VITALS: BP 131/54; PULSE 97; TEMP 97.5
== END 2020-06-27 20:45 | DRG 871 ==
LOC: JER 12:16 → JERBED 16:34 → J7W 19:42
PROVIDERS: ADMIT Family Medicine; ATTEND Family Medicine
PROC: 0DH63UZ Insertion of Feeding Device into Stomach, Percutaneous Approach (ICD-10-PCS; principal; 2020-06-22)
PROC: BD12ZZZ Fluoroscopy of Stomach (ICD-10-PCS; 2020-06-22)
PROC: 3E0H76Z Introduction of Nutritional Substance into Lower GI, Via Natural or Artificial Opening (ICD-10-PCS; 2020-06-24)
DX: A41.89 Other specified sepsis (principal); L89.893 Pressure ulcer of other site, stage 3; G93.41 Metabolic encephalopathy; R53.2 Functional quadriplegia; E87.0 Hyperosmolality and hypernatremia; E87.2 Acidosis; L97.328 Non-pressure chronic ulcer of left ankle with other specified severity; E11.52 Type 2 diabetes mellitus with diabetic peripheral angiopathy with gangrene; I96 Gangrene, not elsewhere classified; N39.0 Urinary tract infection, site not specified; I10 Essential (primary) hypertension; E11.9 Type 2 diabetes mellitus without complications; E78.5 Hyperlipidemia, unspecified; F03.90 Unspecified dementia, unspecified severity, without behavioral disturbance, psychotic disturbance, mood disturbance, and anxiety; Z74.01 Bed confinement status; R41.82 Altered mental status, unspecified; E87.5 Hyperkalemia; R53.1 Weakness; D72.829 Elevated white blood cell count, unspecified; E87.6 Hypokalemia; D47.3 Essential (hemorrhagic) thrombocythemia; E11.622 Type 2 diabetes mellitus with other skin ulcer; B96.20 Unspecified Escherichia coli [E. coli] as the cause of diseases classified elsewhere; L89.312 Pressure ulcer of right buttock, stage 2; L89.322 Pressure ulcer of left buttock, stage 2; L89.890 Pressure ulcer of other site, unstageable
CPT/HCPCS: 36415; 36600; 49440; 70450-TC; 70551-TC; 71045-TC-FY; 73630-TC-LT; 74018-TC-FY; 80048; 80053; 81003; 82140; 82550; 82803; 82962; 83036; 83605; 83735; 84100; 84443; 84484; 85025; 85027; 85610; 85651; 86140; 87040; 87086; 87186; 87804; 93005; 93010; 97161-GP; 99285-25; C9803; J0131; J1644; J3480; U0003; U0005